=== PATIENT | male | born 1990 | race Caucasian/White ===

== ENCOUNTER 2016-12-16 17:54 | Emergency (ER) | payer OTHER ==
[2016-12-16] MEDS ORDERED: KETOROLAC 30 MG/ML VIAL (J1885) As Ordered ONE (19:36)
[2016-12-16] MEDS ORDERED: METHOCARBAMOL 500 MG TAB As Ordered ONE (19:36)
--- NOTE | 2016-12-16 19:59 | EDDOCDS ---
Nurse's Notes [facility] Name: Otoniel Alvarez Age: 26 yrs Sex: Male : 1990 Arrival Date: 12/16/2016 Time: 17:54 Bed PR Private MD: Moody Gooden MD Diagnosis: Low back pain Presentation: 12/16 17:59 Presenting complaint: Patient states: Twisted back muscle, reports of lower back pain rs3 radiates to left shoulder. Acute neurological deficits are not present. Mechanism of Injury: No Mechanism of Injury. Adult Sepsis Screening: The patient does not have new or worsening altered mentation. Patient's respiratory rate is less than 22. Systolic blood pressure is greater than 100. Patient has a qSOFA score of 0- Negative Sepsis Screen. Suicide/Homicide risk assessment- the patient denies having any suicidal and/or homicidal ideations and does not present with any other emotional, behavioral or mental health complaints. Status: Patient is not a financial service representative or dependent. Transition of care: patient was not received from another setting of care. 17:59 Acuity: EVELYN Level 4 rs3 17:59 Method Of Arrival: Walkin/Carried/Asstd rs3 Triage Assessment: 18:01 General: Appears in no apparent distress. Pain: Location: left scapular area, left rs3 subscapular area and lumbar area. HIV screening NA for this visit Offered previously. Musculoskeletal: Reports Pain is 6 out of 10 on a pain scale. Historical: - Allergies: PENICILLINS (Swelling); - Home Meds: 1. albuterol sulfate 90 mcg/actuation Inhl HFAA 2 puffs every 4 hours as needed 2. prazosin 1 mg Oral cap 1 cap nightly prn - PMHx: Asthma; GERD; - PSHx: Tonsillectomy; PRK Eye Surgery; - Social history: Smoking status: Patient states former smoker of tobacco. No barriers to communication noted, The patient speaks fluent Greenlandic. - Family history: Not pertinent. - : The pt / caregiver states he / she is not on anticoagulants. Home medication list is obtained from the patient. - Exposure Risk Screening:: None identified. Screenin:06 Screening information is obtained from the patient. Fall risk: No risks identified. cz Assistance ADL's: requires no assistance with activities of daily living. Abuse/DV Screen: The patient / caregiver reports he/she is: not in a situation that causes fear, pain or injury. Nutritional screening: No deficits noted. Advance Directives: Currently, there is no health care proxy. home support is adequate. Assessment: 19:06 General: alert male with back pain after reaching over his head for something. cz 19:58 General: Appears in no apparent distress. Pain: Location: lumbar area. Cardiovascular: rs3 Capillary refill < 3 seconds. Respiratory: Airway is patent Respiratory effort is even, unlabored. Derm: Skin is pink, warm & dry. Vital Signs: 17:56 BP 147 / 89; Pulse 85; Resp 18; Temp 98.6(O); Pulse Ox 98% on R/A; Weight 97.52 kg (R); elp Height 6 ft. 0 in. (182.88 cm) (R); Pain 8/10; 19:58 BP 122 / 68; Pulse 78; Resp 18; Temp 98(T); Pulse Ox 99% on R/A; Pain 0/10; rs3 17:56 Body Mass Index 29.16 (97.52 kg, 182.88 cm) [facility] Vitals: 17:56 Log In Time: December 16, 2016 at 17:55. [facility] ED Course: 17:55 Patient visited by Desiree Guerin PCA. elp 17:55 Patient moved to Waiting elp 17:56 Moody Gooden is Private Physician. elp 17:56 Patient visited by Desiree Guerin PCA. elp 17:56 Patient moved to Pre RCE elp 18:01 Triage Initiated rs3 19:05 Patient moved to Triage 2 cz 19:06 The patient / caregiver is instructed regarding the plan of care and ED course. cz 19:23 [facility] ck7 19:23 Jose Sin DO is Attending Physician. ck7 19:23 Patient visited by Gopi Medina RPA-C. ck7 19:35 Patient moved to PR1 / 25 rs3 19:37 [facility] Payment Agreement was scanned into [employer] and attached to record. kf3 19:39 Moody Gooden is Referral Physician. ck7 19:57 No IV's were initiated during this patient's visit. No procedures done that require rs3 assistance. Administered Medications: 19:43 Drug: ketorolac 60 mg [ketorolac 30 mg/mL (1 mL) injection solution (2 mL)] Route: IM; rs3 Site: right gluteus; 19:43 Drug: Methocarbamol 1 grams [methocarbamol 500 mg tablet (2 tabs)] Route: PO; rs3 Order Results: There are currently no results for this order. Outcome: 19:39 Discharge ordered by Provider. ck7 19:57 Discharge Assessment: patient administered narcotics - no. The following High Risk rs3 Discharge criteria are identified: None. Discharged to home with family. Condition: stable. Discharge instructions given to patient, Instructed on discharge instructions, follow up and referral plans. medication usage, Demonstrated understanding of instructions, medications, Pt was receptive of discharge instructions/ teaching. Prescriptions given X 2. No special radiology studies were completed. Property :Personal belongings accompany Pt. 19:59 Patient left the ED. rs3 Signatures: Sheldon Leyva RN RN cz Arpan Leahy, Reg Reg kf3 Angy Crowell RN RN rs3 Gopi Medina, RPA-C RPA-Cck7 Patchen, Desiree, LAN ADMINISTRATOR LAN ADMINISTRATOR elp MTDD
--- NOTE | 2016-12-16 19:59 | EDDOCDS ---
Physician Documentation [facility] Name: Otoniel Alvarez Age: 26 yrs Sex: Male : 1990 Arrival Date: 12/16/2016 Time: 17:54 Bed PR Private MD: Moody Gooden MD Disposition: 12/16/16 19:39 Discharged to Home/Self Care. Impression: Low back pain. - Condition is Stable. - Discharge Instructions: Back Pain, Adult. - Prescriptions for Robaxin 500 mg Oral Tablet - take 2 tablet by ORAL route every 6 hours As needed; 40 tablet. ketorolac 10 mg Oral Tablet - take 1 tablet by ORAL route every 6 hours As needed MDD- 40mg. Up to 5 days total use.; 20 tablet. - Medication Reconciliation, Work Release Form - 2 day, Local Pharmacy Hours form. - Follow up: Moody Gooden; When: 2 - 3 days; Reason: Recheck today's complaints, Continuance of care. - Problem is new. - Symptoms have improved. Historical: - Allergies: PENICILLINS (Swelling); - Home Meds: 1. albuterol sulfate 90 mcg/actuation Inhl HFAA 2 puffs every 4 hours as needed 2. prazosin 1 mg Oral cap 1 cap nightly prn - PMHx: Asthma; GERD; - PSHx: Tonsillectomy; PRK Eye Surgery; - Social history: Smoking status: Patient states former smoker of tobacco. No barriers to communication noted, The patient speaks fluent Sami. - Family history: Not pertinent. - : The pt / caregiver states he / she is not on anticoagulants. Home medication list is obtained from the patient. - Exposure Risk Screening:: None identified. Vital Signs: 12/16 17:56 BP 147 / 89; Pulse 85; Resp 18; Temp 98.6(O); Pulse Ox 98% on R/A; Weight 97.52 kg / elp 214.99 lbs (R); Height 6 ft. 0 in. (182.88 cm) (R); Pain 8/10; 19:58 BP 122 / 68; Pulse 78; Resp 18; Temp 98(T); Pulse Ox 99% on R/A; Pain 0/10; rs3 17:56 Body Mass Index 29.16 (97.52 kg, 182.88 cm) elp MDM: 19:29 Financial registration complete. kf3 19:33 ketorolac 60 mg IM once ordered. ck7 19:33 Methocarbamol 1 grams PO once ordered. ck7 19:37 [facility] Payment Agreement was scanned into [employer] and attached to record. kf3 Administered Medications: 19:43 Drug: ketorolac 60 mg [ketorolac 30 mg/mL (1 mL) injection solution (2 mL)] Route: IM; rs3 Site: right gluteus; 19:43 Drug: Methocarbamol 1 grams [methocarbamol 500 mg tablet (2 tabs)] Route: PO; rs3 Signatures: Sheldon Leyva RN RN cz Arpan Leahy, Reg Reg kf3 Angy Crowell RN RN rs3 Gopi Medina, RPA-C RPA-Cck7 The chart was reviewed and I authenticate all verbal orders and agree with the evaluation and treatment provided.Attachments: 19:37 [facility] Payment Agreement kf3 MTDD
--- NOTE | 2016-12-18 21:00 | EDDOCDS ---
Physician Documentation [facility] Name: Otoniel Alvarez Age: 26 yrs Sex: Male : 1990 Arrival Date: 12/16/2016 Time: 17:54 Bed PR Private MD: Moody Gooden MD Disposition: 12/16/16 19:39 Discharged to Home/Self Care. Impression: Low back pain. - Condition is Stable. - Discharge Instructions: Back Pain, Adult. - Prescriptions for Robaxin 500 mg Oral Tablet - take 2 tablet by ORAL route every 6 hours As needed; 40 tablet. ketorolac 10 mg Oral Tablet - take 1 tablet by ORAL route every 6 hours As needed MDD- 40mg. Up to 5 days total use.; 20 tablet. - Medication Reconciliation, Work Release Form - 2 day, Local Pharmacy Hours form. - Follow up: Moody Gooden; When: 2 - 3 days; Reason: Recheck today's complaints, Continuance of care. - Problem is new. - Symptoms have improved. Historical: - Allergies: PENICILLINS (Swelling); - Home Meds: 1. albuterol sulfate 90 mcg/actuation Inhl HFAA 2 puffs every 4 hours as needed 2. prazosin 1 mg Oral cap 1 cap nightly prn - PMHx: Asthma; GERD; - PSHx: Tonsillectomy; PRK Eye Surgery; - Social history: Smoking status: Patient states former smoker of tobacco. No barriers to communication noted, The patient speaks fluent Arabic. - Family history: Not pertinent. - : The pt / caregiver states he / she is not on anticoagulants. Home medication list is obtained from the patient. - Exposure Risk Screening:: None identified. Vital Signs: 12/16 17:56 BP 147 / 89; Pulse 85; Resp 18; Temp 98.6(O); Pulse Ox 98% on R/A; Weight 97.52 kg / elp 214.99 lbs (R); Height 6 ft. 0 in. (182.88 cm) (R); Pain 8/10; 19:58 BP 122 / 68; Pulse 78; Resp 18; Temp 98(T); Pulse Ox 99% on R/A; Pain 0/10; rs3 17:56 Body Mass Index 29.16 (97.52 kg, 182.88 cm) elp MDM: 19:29 Financial registration complete. kf3 19:33 ketorolac 60 mg IM once ordered. ck7 19:33 Methocarbamol 1 grams PO once ordered. ck7 :37 [facility] Payment Agreement was scanned into [employer] and attached to record. kf3 21:04 T-Sheet-- Draft Copy was scanned into [employer] and attached to record. klr Administered Medications: 19:43 Drug: ketorolac 60 mg [ketorolac 30 mg/mL (1 mL) injection solution (2 mL)] Route: IM; rs3 Site: right gluteus; 19:43 Drug: Methocarbamol 1 grams [methocarbamol 500 mg tablet (2 tabs)] Route: PO; rs3 Signatures: Sheldon Leyva RN RN cz Arpan Leahy, Reg Reg kf3 Angy Crowell RN RN rs3 Gopi Medina, RPA-C RPA-Cck7 Nika Gonzalez The chart was reviewed and I authenticate all verbal orders and agree with the evaluation and treatment provided.Attachments: :37 [facility] Payment Agreement kf3 21:04 T-Sheet-- Draft Copy klr Chart Complete MTDD
--- NOTE | 2016-12-18 21:00 | EDDOCDS ---
Physician Documentation [facility] Name: Otoniel Alvarez Age: 26 yrs Sex: Male : 1990 Arrival Date: 12/16/2016 Time: 17:54 Bed PR Private MD: Moody Gooden MD Disposition: 12/16/16 19:39 Discharged to Home/Self Care. Impression: Low back pain. - Condition is Stable. - Discharge Instructions: Back Pain, Adult. - Prescriptions for Robaxin 500 mg Oral Tablet - take 2 tablet by ORAL route every 6 hours As needed; 40 tablet. ketorolac 10 mg Oral Tablet - take 1 tablet by ORAL route every 6 hours As needed MDD- 40mg. Up to 5 days total use.; 20 tablet. - Medication Reconciliation, Work Release Form - 2 day, Local Pharmacy Hours form. - Follow up: Moody Gooden; When: 2 - 3 days; Reason: Recheck today's complaints, Continuance of care. - Problem is new. - Symptoms have improved. Historical: - Allergies: PENICILLINS (Swelling); - Home Meds: 1. albuterol sulfate 90 mcg/actuation Inhl HFAA 2 puffs every 4 hours as needed 2. prazosin 1 mg Oral cap 1 cap nightly prn - PMHx: Asthma; GERD; - PSHx: Tonsillectomy; PRK Eye Surgery; - Social history: Smoking status: Patient states former smoker of tobacco. No barriers to communication noted, The patient speaks fluent Lao. - Family history: Not pertinent. - : The pt / caregiver states he / she is not on anticoagulants. Home medication list is obtained from the patient. - Exposure Risk Screening:: None identified. Vital Signs: 12/16 17:56 BP 147 / 89; Pulse 85; Resp 18; Temp 98.6(O); Pulse Ox 98% on R/A; Weight 97.52 kg / elp 214.99 lbs (R); Height 6 ft. 0 in. (182.88 cm) (R); Pain 8/10; 19:58 BP 122 / 68; Pulse 78; Resp 18; Temp 98(T); Pulse Ox 99% on R/A; Pain 0/10; rs3 17:56 Body Mass Index 29.16 (97.52 kg, 182.88 cm) elp MDM: 19:29 Financial registration complete. kf3 19:33 ketorolac 60 mg IM once ordered. ck7 19:33 Methocarbamol 1 grams PO once ordered. ck7 :37 [facility] Payment Agreement was scanned into [employer] and attached to record. kf3 21:04 T-Sheet-- Draft Copy was scanned into [employer] and attached to record. klr Administered Medications: 19:43 Drug: ketorolac 60 mg [ketorolac 30 mg/mL (1 mL) injection solution (2 mL)] Route: IM; rs3 Site: right gluteus; 19:43 Drug: Methocarbamol 1 grams [methocarbamol 500 mg tablet (2 tabs)] Route: PO; rs3 Signatures: Sheldon Leyva RN RN cz Arpan Leahy, Reg Reg kf3 Angy Crowell RN RN rs3 Gopi Medina, RPA-C RPA-Cck7 Nika Gonzalez The chart was reviewed and I authenticate all verbal orders and agree with the evaluation and treatment provided.Attachments: :37 [facility] Payment Agreement kf3 21:04 T-Sheet-- Draft Copy klr Chart Complete MTDD
--- NOTE | 2016-12-18 21:00 | EDDOCDS ---
Nurse's Notes [facility] Name: Otoniel Alvarez Age: 26 yrs Sex: Male : 1990 Arrival Date: 12/16/2016 Time: 17:54 Bed PR Private MD: Moody Gooden MD Diagnosis: Low back pain Presentation: 12/16 17:59 Presenting complaint: Patient states: Twisted back muscle, reports of lower back pain rs3 radiates to left shoulder. Acute neurological deficits are not present. Mechanism of Injury: No Mechanism of Injury. Adult Sepsis Screening: The patient does not have new or worsening altered mentation. Patient's respiratory rate is less than 22. Systolic blood pressure is greater than 100. Patient has a qSOFA score of 0- Negative Sepsis Screen. Suicide/Homicide risk assessment- the patient denies having any suicidal and/or homicidal ideations and does not present with any other emotional, behavioral or mental health complaints. Status: Patient is not a manager client service or dependent. Transition of care: patient was not received from another setting of care. 17:59 Acuity: EVELYN Level 4 rs3 17:59 Method Of Arrival: Walkin/Carried/Asstd rs3 Triage Assessment: 18:01 General: Appears in no apparent distress. Pain: Location: left scapular area, left rs3 subscapular area and lumbar area. HIV screening NA for this visit Offered previously. Musculoskeletal: Reports Pain is 6 out of 10 on a pain scale. Historical: - Allergies: PENICILLINS (Swelling); - Home Meds: 1. albuterol sulfate 90 mcg/actuation Inhl HFAA 2 puffs every 4 hours as needed 2. prazosin 1 mg Oral cap 1 cap nightly prn - PMHx: Asthma; GERD; - PSHx: Tonsillectomy; PRK Eye Surgery; - Social history: Smoking status: Patient states former smoker of tobacco. No barriers to communication noted, The patient speaks fluent Greenlandic. - Family history: Not pertinent. - : The pt / caregiver states he / she is not on anticoagulants. Home medication list is obtained from the patient. - Exposure Risk Screening:: None identified. Screenin:06 Screening information is obtained from the patient. Fall risk: No risks identified. cz Assistance ADL's: requires no assistance with activities of daily living. Abuse/DV Screen: The patient / caregiver reports he/she is: not in a situation that causes fear, pain or injury. Nutritional screening: No deficits noted. Advance Directives: Currently, there is no health care proxy. home support is adequate. Assessment: 19:06 General: alert male with back pain after reaching over his head for something. cz 19:58 General: Appears in no apparent distress. Pain: Location: lumbar area. Cardiovascular: rs3 Capillary refill < 3 seconds. Respiratory: Airway is patent Respiratory effort is even, unlabored. Derm: Skin is pink, warm & dry. Vital Signs: 17:56 BP 147 / 89; Pulse 85; Resp 18; Temp 98.6(O); Pulse Ox 98% on R/A; Weight 97.52 kg (R); elp Height 6 ft. 0 in. (182.88 cm) (R); Pain 8/10; 19:58 BP 122 / 68; Pulse 78; Resp 18; Temp 98(T); Pulse Ox 99% on R/A; Pain 0/10; rs3 17:56 Body Mass Index 29.16 (97.52 kg, 182.88 cm) [facility] Vitals: 17:56 Log In Time: December 16, 2016 at 17:55. [facility] ED Course: 17:55 Patient visited by Desiree Guerin PCA. elp 17:55 Patient moved to Waiting elp 17:56 Moody Gooden is Private Physician. elp 17:56 Patient visited by Desiree Guerin PCA. elp 17:56 Patient moved to Pre RCE elp 18:01 Triage Initiated rs3 19:05 Patient moved to Triage 2 cz 19:06 The patient / caregiver is instructed regarding the plan of care and ED course. cz 19:23 [facility]C [facility] ck7 19:23 Jose Sin DO is Attending Physician. ck7 19:23 Patient visited by Gopi Medina RPA-C. ck7 19:35 Patient moved to PR1 / 25 rs3 19:37 [facility] Payment Agreement was scanned into [employer] and attached to record. kf3 19:39 Moody Gooden is Referral Physician. ck7 19:57 No IV's were initiated during this patient's visit. No procedures done that require rs3 assistance. 21:04 T-Sheet-- Draft Copy was scanned into [employer] and attached to record. klr Administered Medications: 19:43 Drug: ketorolac 60 mg [ketorolac 30 mg/mL (1 mL) injection solution (2 mL)] Route: IM; rs3 Site: right gluteus; 19:43 Drug: Methocarbamol 1 grams [methocarbamol 500 mg tablet (2 tabs)] Route: PO; rs3 Order Results: There are currently no results for this order. Outcome: 19:39 Discharge ordered by Provider. ck7 19:57 Discharge Assessment: patient administered narcotics - no. The following High Risk rs3 Discharge criteria are identified: None. Discharged to home with family. Condition: stable. Discharge instructions given to patient, Instructed on discharge instructions, follow up and referral plans. medication usage, Demonstrated understanding of instructions, medications, Pt was receptive of discharge instructions/ teaching. Prescriptions given X 2. No special radiology studies were completed. Property :Personal belongings accompany Pt. 19:59 Patient left the ED. rs3 Signatures: Sheldon Leyva, RN RN cz Arpan Leahy, Reg Reg kf3 Angy Crowell RN RN rs3 Gopi Medina, RPA-C RPA-Cck7 Desiree Guerin, NEEL FINAL APPLICATION REVIEWER Nika Richard Chart Complete MTDD
== END 2016-12-16 19:59 | disposition home or self-care (01) ==
LOC: M ED 17:54
DX: M54.5 Low back pain (principal); J45.909 Unspecified asthma, uncomplicated; K21.9 Gastro-esophageal reflux disease without esophagitis; Z87.891 Personal history of nicotine dependence; Z79.51 Long term (current) use of inhaled steroids; Z79.899 Other long term (current) drug therapy; Z88.0 Allergy status to penicillin
CPT/HCPCS: 96372; 99283; J1885

== ENCOUNTER 2017-01-17 13:50 | Emergency (ER) | payer OTHER ==
[2017-01-17] MEDS ORDERED: ONDANSETRON 4 MG ORAL DISINTEGRATING TAB (S0181) As Ordered ONE (14:34)
[2017-01-17] MEDS ORDERED: ACETAMINOPHEN 325 MG TAB As Ordered ONE (14:34)
--- NOTE | 2017-01-17 14:46 | EDDOCDS ---
Nurse's Notes [facility] Name: Otoniel Alvarez Age: 26 yrs Sex: Male : 1990 Arrival Date: 01/17/2017 Time: 13:50 Bed TR6 Private MD: Diagnosis: Other specified noninfective gastroenteritis and colitis Presentation: 01/17 13:55 Presenting complaint: Patient states: cold, cough, chills, vomiting for 2 days. no rs3 relief with cold, flu tylenol. Adult Sepsis Screening: The patient does not have new or worsening altered mentation. Patient's respiratory rate is less than 22. Systolic blood pressure is greater than 100. Patient has a qSOFA score of 0- Negative Sepsis Screen. Suicide/Homicide risk assessment- the patient denies having any suicidal and/or homicidal ideations and does not present with any other emotional, behavioral or mental health complaints. Status: . Transition of care: patient was not received from another setting of care. 13:55 Acuity: EVELYN Level 4 rs3 13:55 Method Of Arrival: Walkin/Carried/Asstd rs3 Triage Assessment: 13:57 General: Appears in no apparent distress. Pain: Denies pain. Pt Declines HIV testing. rs3 Historical: - Allergies: PENICILLINS (Swelling); - Home Meds: 1. albuterol sulfate 90 mcg/actuation Inhl HFAA 2 puffs every 4 hours as needed 2. prazosin 1 mg Oral cap 1 cap nightly prn 3. Zantac 150 mg Oral tab 1 tab 2 times per day as needed - PMHx: Asthma; GERD; - PSHx: Tonsillectomy; PRK Eye Surgery; - Social history: Smoking status: Patient states former smoker of tobacco. No barriers to communication noted, The patient speaks fluent Somali. - Family history: Not pertinent. - : The pt / caregiver states he / she is not on anticoagulants. Home medication list is obtained from the patient. - Exposure Risk Screening:: None identified. Screenin:37 Screening information is obtained from the patient. Fall risk: No risks identified. ck1 Assistance ADL's: requires no assistance with activities of daily living. Abuse/DV Screen: The patient / caregiver reports he/she is: not in a situation that causes fear, pain or injury. Nutritional screening: No deficits noted. Advance Directives: Currently, there is no health care proxy. home support is adequate. Assessment: 14:38 General: Appears in no apparent distress, comfortable, Behavior is appropriate for age, ck1 cooperative. Pain: Location: generalized Pain currently is 6 out of 10 on a pain scale. Neurological: Level of Consciousness is awake, alert, obeys commands, Oriented to person, place, time. Respiratory: Respiratory effort is unlabored, Respiratory pattern is regular, symmetrical. GI: Reports nausea. Derm: Skin is intact, is healthy with good turgor, Skin is pink, warm & dry. Vital Signs: 13:52 BP 133 / 82; Pulse 100; Resp 16; Temp 100.2(O); Pulse Ox 100% on R/A; Weight 104.33 kg lr2 (R); Height 6 ft. 0 in. (182.88 cm) (R); Pain 6/10; 13:52 Body Mass Index 31.19 (104.33 kg, 182.88 cm) lr2 Vitals: 13:52 Log In Time: January 17, 2017 at 13:50. lr2 ED Course: 13:51 Patient visited by Annalise Lim. lr2 13:51 Patient moved to Waiting lr2 13:52 Patient moved to Pre RCE lr2 13:56 Triage Initiated rs3 14:06 Patient moved to Triage 3 jb5 14:14 [facility] Keenan FNP is [facility]. ke 14:14 Patient visited by John Keenan FNP. ke 14:14 Patient visited by John Keenan FNP. ke 14:37 The patient / caregiver is instructed regarding the plan of care and ED course. ck1 14:37 No IV's were initiated during this patient's visit. No procedures done that require ck1 assistance. 14:38 [facility] is Referral Physician. ke 14:44 Patient moved to TR6 jb5 Administered Medications: 14:29 CANCELLED (Other Intervention Used): Acetaminophen Tablet 975 mg PO once ke 14:37 Drug: Ondansetron ODT 4 mg [ondansetron 4 mg disintegrating tablet (1 tabs)] Route: PO; ck1 14:37 Drug: Acetaminophen 975 mg [acetaminophen 325 mg tablet (3 tabs)] Route: PO; ck1 Order Results: There are currently no results for this order. Outcome: 14:37 Discharge Assessment: Patient awake, alert and oriented x 3. No cognitive and/or ck1 functional deficits noted. Patient verbalized understanding of disposition instructions. patient administered narcotics - no. The following High Risk Discharge criteria are identified: None. Discharged to home ambulatory. Condition: stable. Discharge instructions given to patient, Instructed on discharge instructions, follow up and referral plans. medication usage, Demonstrated understanding of instructions, medications, Pt was receptive of discharge instructions/ teaching. No special radiology studies were completed. Property :Personal belongings accompany Pt. 14:38 Discharge ordered by Provider. ke 14:45 Patient left the ED. jo3 Signatures: John Keenan, INTERVENTIONIST INTERVENTIONIST Janelle WestRN RN ck1 Meghan Young, SEXUAL ABUSE COUNSELLOR SEXUAL ABUSE COUNSELLOR jb5 Mindy Mcghee RN RN jo3 Angy CrowellRN RN rs3 Annalise Lim2 MTDSouth
--- NOTE | 2017-01-17 14:46 | EDDOCDS ---
Physician Documentation [facility] Name: Otoniel Alvarez Age: 26 yrs Sex: Male : 1990 Arrival Date: 01/17/2017 Time: 13:50 Bed TR6 Private MD: Disposition: 01/17/17 14:38 Discharged to Home/Self Care. Impression: Other specified noninfective gastroenteritis and colitis. - Condition is Stable. - Discharge Instructions: Viral Gastroenteritis. - Prescriptions for Zofran 4 mg Oral Tablet - take 1 tablet by ORAL route 4 times per day As needed; 10 tablet. - Medication Reconciliation, Local Pharmacy Hours, Work Release Form - 2 day form. - Follow up: [facility]; When: 4 - 5 days; Reason: Recheck today's complaints, Continuance of care. - Problem is an ongoing problem. - Symptoms are unchanged. Historical: - Allergies: PENICILLINS (Swelling); - Home Meds: 1. albuterol sulfate 90 mcg/actuation Inhl HFAA 2 puffs every 4 hours as needed 2. prazosin 1 mg Oral cap 1 cap nightly prn 3. Zantac 150 mg Oral tab 1 tab 2 times per day as needed - PMHx: Asthma; GERD; - PSHx: Tonsillectomy; PRK Eye Surgery; - Social history: Smoking status: Patient states former smoker of tobacco. No barriers to communication noted, The patient speaks fluent Malay. - Family history: Not pertinent. - : The pt / caregiver states he / she is not on anticoagulants. Home medication list is obtained from the patient. - Exposure Risk Screening:: None identified. Vital Signs: 01/17 13:52 BP 133 / 82; Pulse 100; Resp 16; Temp 100.2(O); Pulse Ox 100% on R/A; Weight 104.33 kg lr2 / 230.01 lbs (R); Height 6 ft. 0 in. (182.88 cm) (R); Pain 6/10; 13:52 Body Mass Index 31.19 (104.33 kg, 182.88 cm) lr2 MDM: 14:29 Ondansetron ODT Oral Disintegrating Tablet 4 mg PO once ordered. ke 14:29 Acetaminophen Tablet 975 mg PO once ordered. ke Administered Medications: 14:29 CANCELLED (Other Intervention Used): Acetaminophen Tablet 975 mg PO once ke 14:37 Drug: Ondansetron ODT 4 mg [ondansetron 4 mg disintegrating tablet (1 tabs)] Route: PO; ck1 14:37 Drug: Acetaminophen 975 mg [acetaminophen 325 mg tablet (3 tabs)] Route: PO; ck1 Signatures: John Keenan, FRUIT HARVESTER MACHINE OPERATOR FRUIT HARVESTER MACHINE OPERATOR Janelle WestRN RN ck1 Mindy McgheeRN RN jo3 Angy CrowellRN RN rs3 The chart was reviewed and I authenticate all verbal orders and agree with the evaluation and treatment provided.Corrections: (The following items were deleted from the chart) 14:29 14:29 Acetaminophen Tablet 975 mg PO once ordered. ron ke MTDD
[2017-01-17] MEDS ORDERED: METAL LOCK LOOP XX ONE (16:47)
--- NOTE | 2017-01-19 15:46 | EDDOCDS ---
Physician Documentation [facility] Name: Otoniel Alvarez Age: 26 yrs Sex: Male : 1990 Arrival Date: 01/17/2017 Time: 13:50 Bed TR6 Private MD: Disposition: 01/17/17 14:38 Discharged to Home/Self Care. Impression: Other specified noninfective gastroenteritis and colitis. - Condition is Stable. - Discharge Instructions: Viral Gastroenteritis. - Prescriptions for Zofran 4 mg Oral Tablet - take 1 tablet by ORAL route 4 times per day As needed; 10 tablet. - Medication Reconciliation, Local Pharmacy Hours, Work Release Form - 2 day form. - Follow up: [facility]; When: 4 - 5 days; Reason: Recheck today's complaints, Continuance of care. - Problem is an ongoing problem. - Symptoms are unchanged. Historical: - Allergies: PENICILLINS (Swelling); - Home Meds: 1. albuterol sulfate 90 mcg/actuation Inhl HFAA 2 puffs every 4 hours as needed 2. prazosin 1 mg Oral cap 1 cap nightly prn 3. Zantac 150 mg Oral tab 1 tab 2 times per day as needed - PMHx: Asthma; GERD; - PSHx: Tonsillectomy; PRK Eye Surgery; - Social history: Smoking status: Patient states former smoker of tobacco. No barriers to communication noted, The patient speaks fluent Chinese. - Family history: Not pertinent. - : The pt / caregiver states he / she is not on anticoagulants. Home medication list is obtained from the patient. - Exposure Risk Screening:: None identified. Vital Signs: 01/17 13:52 BP 133 / 82; Pulse 100; Resp 16; Temp 100.2(O); Pulse Ox 100% on R/A; Weight 104.33 kg lr2 / 230.01 lbs (R); Height 6 ft. 0 in. (182.88 cm) (R); Pain 6/10; 13:52 Body Mass Index 31.19 (104.33 kg, 182.88 cm) lr2 MDM: 14:29 Ondansetron ODT Oral Disintegrating Tablet 4 mg PO once ordered. ke 14:29 Acetaminophen Tablet 975 mg PO once ordered. ke 14:49 [facility] Payment Agreement was scanned into [employer] and attached to record. jp5 14:49 Financial registration complete. jp5 01/18 10:18 T-Sheet-- Draft Copy was scanned into [employer] and attached to record. gb Administered Medications: 01/17 14:29 CANCELLED (Other Intervention Used): Acetaminophen Tablet 975 mg PO once ke 14:37 Drug: Ondansetron ODT 4 mg [ondansetron 4 mg disintegrating tablet (1 tabs)] Route: PO; ck1 14:37 Drug: Acetaminophen 975 mg [acetaminophen 325 mg tablet (3 tabs)] Route: PO; ck1 Signatures: Bina Escalante, Reg Reg gb John Keenan, GAME PROGRAMER GAME PROGRAMER Janelle WestRN RN ck1 Mindy McgheeRN RN chantelle3 Angy Crowell,RN RN rs3 Pinky Julien jp5 The chart was reviewed and I authenticate all verbal orders and agree with the evaluation and treatment provided.Corrections: (The following items were deleted from the chart) : 14:29 Acetaminophen Tablet 975 mg PO once ordered. ron velasquez Attachments: 14:49 [facility] Payment Agreement jp5 01/18 10:18 T-Sheet-- Draft Copy gb Chart Complete [facility]
--- NOTE | 2017-01-19 15:46 | EDDOCDS ---
Nurse's Notes [facility] Name: Otoniel Alvarez Age: 26 yrs Sex: Male : 1990 Arrival Date: 01/17/2017 Time: 13:50 Bed TR6 Private MD: Diagnosis: Other specified noninfective gastroenteritis and colitis Presentation: 01/17 13:55 Presenting complaint: Patient states: cold, cough, chills, vomiting for 2 days. no rs3 relief with cold, flu tylenol. Adult Sepsis Screening: The patient does not have new or worsening altered mentation. Patient's respiratory rate is less than 22. Systolic blood pressure is greater than 100. Patient has a qSOFA score of 0- Negative Sepsis Screen. Suicide/Homicide risk assessment- the patient denies having any suicidal and/or homicidal ideations and does not present with any other emotional, behavioral or mental health complaints. Status: . Transition of care: patient was not received from another setting of care. 13:55 Acuity: EVELYN Level 4 rs3 13:55 Method Of Arrival: Walkin/Carried/Asstd rs3 Triage Assessment: 13:57 General: Appears in no apparent distress. Pain: Denies pain. Pt Declines HIV testing. rs3 Historical: - Allergies: PENICILLINS (Swelling); - Home Meds: 1. albuterol sulfate 90 mcg/actuation Inhl HFAA 2 puffs every 4 hours as needed 2. prazosin 1 mg Oral cap 1 cap nightly prn 3. Zantac 150 mg Oral tab 1 tab 2 times per day as needed - PMHx: Asthma; GERD; - PSHx: Tonsillectomy; PRK Eye Surgery; - Social history: Smoking status: Patient states former smoker of tobacco. No barriers to communication noted, The patient speaks fluent Sami. - Family history: Not pertinent. - : The pt / caregiver states he / she is not on anticoagulants. Home medication list is obtained from the patient. - Exposure Risk Screening:: None identified. Screenin:37 Screening information is obtained from the patient. Fall risk: No risks identified. ck1 Assistance ADL's: requires no assistance with activities of daily living. Abuse/DV Screen: The patient / caregiver reports he/she is: not in a situation that causes fear, pain or injury. Nutritional screening: No deficits noted. Advance Directives: Currently, there is no health care proxy. home support is adequate. Assessment: 14:38 General: Appears in no apparent distress, comfortable, Behavior is appropriate for age, ck1 cooperative. Pain: Location: generalized Pain currently is 6 out of 10 on a pain scale. Neurological: Level of Consciousness is awake, alert, obeys commands, Oriented to person, place, time. Respiratory: Respiratory effort is unlabored, Respiratory pattern is regular, symmetrical. GI: Reports nausea. Derm: Skin is intact, is healthy with good turgor, Skin is pink, warm & dry. Vital Signs: 13:52 BP 133 / 82; Pulse 100; Resp 16; Temp 100.2(O); Pulse Ox 100% on R/A; Weight 104.33 kg lr2 (R); Height 6 ft. 0 in. (182.88 cm) (R); Pain 6/10; 13:52 Body Mass Index 31.19 (104.33 kg, 182.88 cm) lr2 Vitals: 13:52 Log In Time: January 17, 2017 at 13:50. lr2 ED Course: 13:51 Patient visited by Annalise Lim. lr2 13:51 Patient moved to Waiting lr2 13:52 Patient moved to Pre RCE lr2 13:56 Triage Initiated rs3 14:06 Patient moved to Triage 3 jb5 14:14 [facility] ke 14:14 Patient visited by John Keenan FNP. ke 14:14 Patient visited by John Keenan FNP. ke 14:37 The patient / caregiver is instructed regarding the plan of care and ED course. ck1 14:37 No IV's were initiated during this patient's visit. No procedures done that require ck1 assistance. 14:38 [facility] is Referral Physician. ke 14:44 Patient moved to TR6 jb5 14:49 [facility] Payment Agreement was scanned into [employer] and attached to record. jp5 01/18 10:18 T-Sheet-- Draft Copy was scanned into [employer] and attached to record. gb Administered Medications: 01/17 14:29 CANCELLED (Other Intervention Used): Acetaminophen Tablet 975 mg PO once ke 14:37 Drug: Ondansetron ODT 4 mg [ondansetron 4 mg disintegrating tablet (1 tabs)] Route: PO; ck1 14:37 Drug: Acetaminophen 975 mg [acetaminophen 325 mg tablet (3 tabs)] Route: PO; ck1 Order Results: There are currently no results for this order. Outcome: 14:37 Discharge Assessment: Patient awake, alert and oriented x 3. No cognitive and/or ck1 functional deficits noted. Patient verbalized understanding of disposition instructions. patient administered narcotics - no. The following High Risk Discharge criteria are identified: None. Discharged to home ambulatory. Condition: stable. Discharge instructions given to patient, Instructed on discharge instructions, follow up and referral plans. medication usage, Demonstrated understanding of instructions, medications, Pt was receptive of discharge instructions/ teaching. No special radiology studies were completed. Property :Personal belongings accompany Pt. 14:38 Discharge ordered by Provider. ron 14:45 Patient left the ED. jo3 Signatures: Bina Escalante, Reg Reg gb John Keenan, WOMEN DESIGNER WOMEN DESIGNER Janelle WestRN RN ck1 Meghan Young, TELEVISION REPAIRMAN TELEVISION REPAIRMAN jb5 Mindy Mcghee RN RN jo3 Angy CrowellRN RN rs3 Pinky Julien jp5 Annalise Lim2 Chart Complete [facility]
--- NOTE | 2017-01-19 15:46 | EDDOCDS ---
Physician Documentation [facility] Name: Otoniel Alvarez Age: 26 yrs Sex: Male : 1990 Arrival Date: 01/17/2017 Time: 13:50 Bed TR6 Private MD: Disposition: 01/17/17 14:38 Discharged to Home/Self Care. Impression: Other specified noninfective gastroenteritis and colitis. - Condition is Stable. - Discharge Instructions: Viral Gastroenteritis. - Prescriptions for Zofran 4 mg Oral Tablet - take 1 tablet by ORAL route 4 times per day As needed; 10 tablet. - Medication Reconciliation, Local Pharmacy Hours, Work Release Form - 2 day form. - Follow up: [facility]; When: 4 - 5 days; Reason: Recheck today's complaints, Continuance of care. - Problem is an ongoing problem. - Symptoms are unchanged. Historical: - Allergies: PENICILLINS (Swelling); - Home Meds: 1. albuterol sulfate 90 mcg/actuation Inhl HFAA 2 puffs every 4 hours as needed 2. prazosin 1 mg Oral cap 1 cap nightly prn 3. Zantac 150 mg Oral tab 1 tab 2 times per day as needed - PMHx: Asthma; GERD; - PSHx: Tonsillectomy; PRK Eye Surgery; - Social history: Smoking status: Patient states former smoker of tobacco. No barriers to communication noted, The patient speaks fluent Polish. - Family history: Not pertinent. - : The pt / caregiver states he / she is not on anticoagulants. Home medication list is obtained from the patient. - Exposure Risk Screening:: None identified. Vital Signs: 01/17 13:52 BP 133 / 82; Pulse 100; Resp 16; Temp 100.2(O); Pulse Ox 100% on R/A; Weight 104.33 kg lr2 / 230.01 lbs (R); Height 6 ft. 0 in. (182.88 cm) (R); Pain 6/10; 13:52 Body Mass Index 31.19 (104.33 kg, 182.88 cm) lr2 MDM: 14:29 Ondansetron ODT Oral Disintegrating Tablet 4 mg PO once ordered. ke 14:29 Acetaminophen Tablet 975 mg PO once ordered. ke 14:49 [facility] Payment Agreement was scanned into [employer] and attached to record. jp5 14:49 Financial registration complete. jp5 01/18 10:18 T-Sheet-- Draft Copy was scanned into [employer] and attached to record. gb Administered Medications: 01/17 14:29 CANCELLED (Other Intervention Used): Acetaminophen Tablet 975 mg PO once ke 14:37 Drug: Ondansetron ODT 4 mg [ondansetron 4 mg disintegrating tablet (1 tabs)] Route: PO; ck1 14:37 Drug: Acetaminophen 975 mg [acetaminophen 325 mg tablet (3 tabs)] Route: PO; ck1 Signatures: Bina Escalante, Reg Reg gb John Keenan, RIGHT OF WAY CUTTER RIGHT OF WAY CUTTER Janelle WestRN RN ck1 Mindy McgheeRN RN chantelle3 Angy Crowell,RN RN rs3 Pinky Julien jp5 The chart was reviewed and I authenticate all verbal orders and agree with the evaluation and treatment provided.Corrections: (The following items were deleted from the chart) : 14:29 Acetaminophen Tablet 975 mg PO once ordered. ron velasquez Attachments: 14:49 [facility] Payment Agreement jp5 01/18 10:18 T-Sheet-- Draft Copy gb Chart [facility]
== END 2017-01-17 14:45 | disposition home or self-care (01) ==
LOC: M ED 13:50
DX: K52.9 Noninfective gastroenteritis and colitis, unspecified (principal); J45.909 Unspecified asthma, uncomplicated; K21.9 Gastro-esophageal reflux disease without esophagitis; Z87.891 Personal history of nicotine dependence; Z79.899 Other long term (current) drug therapy; Z88.0 Allergy status to penicillin

== ENCOUNTER → 2017-08-14 | Outpatient (CLI) | payer OTHER ==
[~2017-08-14] MED LIST: CYCL10TA PO; VIAG100T PO
--- NOTE | 2017-08-14 11:32 | REP ---
Clinical: Abdominal pain. Technique: Two supine views of the abdomen and pelvis. Findings: Mild to moderate fecal stasis cannot be excluded. No evidence for bowel obstruction. No organomegaly. No abnormal calcifications. Skeletal structures are intact. Impression: Mild to moderate fecal stasis. Signed by Gunner Alberto MD 08/14/2017 11:23 A
[2017-08-14 19:48] LABS: ALBUMIN 3.9 GM/DL (3.2-5.2); ALBUMIN/GLOBULIN RATIO 1.26 (1.00-1.93); ALKALINE PHOSPHATASE 85 U/L (45-117); ALT/SGPT 34 U/L (12-78); AMYLASE 60 U/L (25-115); ANION GAP 6 MEQ/L (8-16); AST/SGOT 18 U/L (15-37); BILIRUBIN,TOTAL 0.2 MG/DL (0.2-1.0); BLOOD UREA NITROGEN 15 MG/DL (7-18); CARBON DIOXIDE LEVEL 32 MEQ/L (21-32); CHLORIDE LEVEL 108 MEQ/L (98-107); CREATININE FOR GFR 0.96 MG/DL (0.70-1.30); GLOMERULAR FILTRATION RATE > 60.0 (>60); GLUCOSE, FASTING 83 MG/DL (70-105); POTASSIUM SERUM 4.5 MEQ/L (3.5-5.1); SODIUM LEVEL 146 MEQ/L (136-145)
[2017-08-14 20:36] LABS: MEAN CORPUSCULAR HEMOGLOBIN 28.9 pg (27.0-33.0); MEAN CORPUSCULAR HGB CONC 32.7 g/dl (32.0-36.5); MEAN CORPUSCULAR VOLUME 88.6 fl (80.0-96.0); RED CELL DISTRIBUTION WIDTH 13.3 % (11.5-14.5); WHITE BLOOD COUNT 8.6 K/mm3 (4.0-10.0)
[2017-08-14 21:40] LABS: EOSINOPHILS 1 % (0-5)
== END ==
LOC: M WUC 11:01
PROVIDERS: ATTEND Physician Assistant
DX: R10.33 Periumbilical pain (principal)

== ENCOUNTER 2017-10-14 16:54 | Inpatient (IN) | payer OTHER ==
[~2017-10-14] VITALS: Ht 182.9 cm; Wt 90.0 kg
[2017-10-14 18:10] LABS: MEAN CORPUSCULAR HEMOGLOBIN 28.4 pg (27.0-33.0); MEAN CORPUSCULAR HGB CONC 33.3 g/dl (32.0-36.5); MEAN CORPUSCULAR VOLUME 85.4 fl (80.0-96.0); PLATELET COUNT, AUTOMATED 281 10^3/uL (150-450); RED CELL DISTRIBUTION WIDTH 12.9 % (11.5-14.5); WHITE BLOOD COUNT 13.6 10^3/uL (4.0-10.0)
[2017-10-14 18:46] LABS: ALKALINE PHOSPHATASE 84 U/L (45-117); ALT/SGPT 20 U/L (12-78); ANION GAP 7 MEQ/L (8-16); AST/SGOT 11 U/L (7-37); BILIRUBIN,TOTAL 0.8 MG/DL (0.2-1.0); BLOOD UREA NITROGEN 18 MG/DL (7-18); CARBON DIOXIDE LEVEL 26 MEQ/L (21-32); CHLORIDE LEVEL 108 MEQ/L (98-107); CREATININE FOR GFR 0.85 MG/DL (0.70-1.30); GLOMERULAR FILTRATION RATE > 60.0 (>60); GLUCOSE, FASTING 85 MG/DL (70-105); POTASSIUM SERUM 3.6 MEQ/L (3.5-5.1); SODIUM LEVEL 141 MEQ/L (136-145)
[2017-10-14 18:47] LABS: ALBUMIN 3.9 GM/DL (3.2-5.2); ALBUMIN/GLOBULIN RATIO 1.34 (1.00-1.93); BILIRUBIN,DIRECT 0.2 MG/DL (0.0-0.2); TOTAL PROTEIN 6.8 GM/DL (6.4-8.2)
[2017-10-14] MEDS ORDERED: VIAG100T PO (19:01)
[2017-10-14] MEDS ORDERED: CYCL10TA PO (19:01)
[2017-10-14 20:35] LABS: METHADONE URINE NEGATIVE (NEGATIVE)
[2017-10-14] MEDS ORDERED: MOM 30ML SUSPENSION UDC PO PRN (21:15)
[2017-10-14] MEDS ORDERED: ACETAMINOPHEN TAB 650MG DOSE (2X325MG) PO PRN (21:15)
[2017-10-14] MEDS ORDERED: traZODone 50 MG TAB PO PRN (21:15)
[2017-10-14] MEDS ORDERED: MAALOX 30 ML SUSP *UDC PO PRN (21:15)
[2017-10-14] MEDS ORDERED: hydrOXYzine 50 MG TAB PO PRN (21:15)
[2017-10-14] MEDS ORDERED: CYCLOBENZAPRINE 10 MG TAB PO PRN (21:30)
[2017-10-14 22:27] VITALS: BP 127/82
[2017-10-15 06:47] VITALS: BP 140/65
[2017-10-15] MEDS: NICOTINE 21MG/24HR 1 EA TRANSDERMAL TD SCH (09:00)
--- NOTE | 2017-10-15 10:57 | HPEPDOC ---
[facility] Medical History & Physical Date of Admission Oct 14, 2017 History and Physical PCP: [facility] ATTENDING: Dr. Greg Mace HPI: 27yoM admitted to [facility] for unspecified depressive disorder, being medically examined today. No acute medical complaints today. Denies any fevers, chills, weakness, fatigue, GAY, CP, SOB, cough, palpitations, abdominal pain, N/V /D or changes in bowel or bladder habits. PMHx: Anxiety Depression Insomnia Chronic low back pain Erectile dysfunction PSHX: Tonsillectomy Benign Cyst removed from head and shoulder SOCHX: Resides in: [facility] Marital Status: Single Kids: 1 Employment: Served 7 years and 9 months in the [employer], discharged 04/06/16. He to [facility] 1. Currently employed at the [employer] in [place]. Tobacco use: 1-2 per week. ETOH: states drank heavily after deployment however currently one drink every 2 months. Illicit Drugs: Used Percocet in the past. IV Drug Use: Denies Tattoos done unprofessionally: Denies FAMHX: Mother: Alive, DM. Father: Unknown Siblings: Unknown Children: Alive, well Unexpected deaths due to medical reasons: None. ROS: As noted in HPI, otherwise 11pt ROS of systems reviewed and unremarkable. PE: GEN: 27yoM, appears stated age. Well-nourished, well developed. No acute distress. Alert and oriented x 3. Pleasant, interactive. HEENT: Normocephalic, atraumatic. Pupils are equal, round, and reactive to light. Extraocular movements are intact. No nystagmus appreciated. Sclera are nonicteric. Conjunctiva without injection. Nose midline. Nasal turbinates without bogginess. EACs both patent BL. TMs both visualized and mckeon with good cone of light, no bulging or erythema. No facial asymmetry. Moist mucous membranes. Dentition fair. Pharynx pink and moist, no cobblestoning. Neck supple , trachea midline. No lymphadenopathy or thyromegaly appreciated. CHEST: Regular rate and rhythm, +S1, +S2 LUNGS: Clear to auscultation bilaterally. No wheezes, rales, or rhonchi. Breathing appears symmetric and easy. Patient is speaking in full sentences. No accessory muscle use. ABD: Round, soft, non-tender, non-distended. +Bowel sounds throughout. No rebound or guarding. No costovertebral angle tenderness. EXT: Pulses 2+ bilaterally dorsalis pedis and radial. No lower extremity edema appreciated. SKIN: [employer], dry, warm. Capillary refill <2sec. No rashes. NEURO: Alert and oriented x 3. Cranial nerves III-XII are intact. No focal deficits appreciated. EKG: pending. A&P: 27yoM admitted to [facility] for unspecified depressive disorder 1. Psych. Plan per Psychiatry.Obtain baseline EKG to assure the safety of psychiatric medications as they can prolong the QT interval. 2. Nicotine dependence. Patch available. 3. Chronic low back pain. Continue Flexeril 10 mg daily as needed. Continue Tylenol 650 mg by mouth every 6 hours as needed. 4. Follow up with PCP on discharge. 5. H/O Substance use. Per psychiatry. 6. Leukocytosis. Patient is afebrile. Asymptomatic. Recheck CBC in a.m. 7. Staff member Anthony present throughout exam. Vital Signs Vital Signs Date Time Temp Pulse Resp B/P (MAP) Pulse Ox O2 Delivery O2 Flow Rate FiO2 10/15/17 06:47 97.7 88 14 140/65 (90) Room Air 10/14/17 21:58 96 Laboratory Data Labs 24H Laboratory Tests 2 10/14/17 17:56: Nucleated Red Blood Cells % (auto) 0.0, Anion Gap 7L, Glomerular Filtration Rate > 60.0, Calcium Level 9.0, Aspartate Amino Transf (AST/SGOT) 11, Alanine Aminotransferase (ALT/SGPT) 20, Alkaline Phosphatase 84, Total Bilirubin 0.8, Direct Bilirubin 0.2, Total Protein 6.8, Albumin 3.9, Albumin/Globulin Ratio 1.34, Thyroid Stimulating Hormone (TSH) 0.611, Salicylates Level < 1.7L, Acetaminophen Level < 2.0L, Ethyl Alcohol Level < 0.003 10/14/17 20:00: Urine Amphetamines Screen NEGATIVE, Urine Benzodiazepines Screen NEGATIVE, Urine Opiates Screen NEGATIVE, Urine Methadone Screen NEGATIVE, Urine Barbiturates Screen NEGATIVE, Urine Phencyclidine Screen NEGATIVE, Urine Cocaine Metabolite Screen NEGATIVE, Urine Cannabinoids Screen NEGATIVE CBC/BMP Laboratory Tests 10/14/17 17:56 Red Blood Count 5.28, Mean Corpuscular Volume 85.4, Mean Corpuscular Hemoglobin 28.4, Mean Corpuscular Hemoglobin Concent 33.3, Red Cell Distribution Width 12.9 Home Medications Scheduled PRN Cyclobenzaprine HCl (Cyclobenzaprine HCl) 10 Mg Tab, 10 MG PO for MUSCLE SPASMS Sildenafil Citrate (Viagra) 100 Mg Tab, 100 MG PO for ERECTILE DYSFUNCTION Allergies Coded Allergies: Hydrocodone (Verified Allergy, Severe, THROAT SWELLS, 10/06/17) Penicillins (Verified Allergy, Mild, HIVES, 10/06/17) Erika Velásquez Oct 15, 2017 10:57
[2017-10-15] MEDS: PARoxetine 12.5 MG **CR** TAB PO SCH (15:18)
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
[2017-10-15 18:19] VITALS: BP 122/72
[2017-10-16 06:27] VITALS: BP 98/53
[2017-10-16 07:36] LABS: MEAN CORPUSCULAR HEMOGLOBIN 28.3 pg (27.0-33.0); MEAN CORPUSCULAR HGB CONC 32.6 g/dl (32.0-36.5); MEAN CORPUSCULAR VOLUME 86.8 fl (80.0-96.0); PLATELET COUNT, AUTOMATED 314 10^3/uL (150-450); RED CELL DISTRIBUTION WIDTH 12.9 % (11.5-14.5); WHITE BLOOD COUNT 9.2 10^3/uL (4.0-10.0)
[2017-10-16] MEDS: NICOTINE 21MG/24HR 1 EA TRANSDERMAL TD SCH (09:00)
[2017-10-16] MEDS: PARoxetine 12.5 MG **CR** TAB PO SCH (09:22)
[2017-10-16] MEDS ORDERED: hydrOXYzine 50 MG TAB PO PRN (11:15)
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
[2017-10-16] MEDS ORDERED: TRAZO50TA PO ×2 (12:46→13:00)
[2017-10-16] MEDS ORDERED: NICO21PAT TD (12:46)
[2017-10-16] MEDS ORDERED: ABIL10TA9 PO ×2 (12:48→13:00)
[2017-10-16] MEDS ORDERED: HYDR-3363 PO ×3 (12:51→14:46)
[2017-10-16] MEDS ORDERED: PARO20TA3 PO ×2 (12:52→13:00)
--- NOTE | 2017-10-17 00:46 | ECGEPIP ---
Stationary ECG Study [facility] Test Date: 2017-10-15 Pat Name: KAVITHA REECE Department: Room: [place] [address] Gender: M Gis Mapping Technician: : 1990 Requested By: Erika Velásquez Order Number: [id number] Reading MD: Gareth Calderon Measurements Intervals [place] Rate: 65 P: 14 VA: 167 QRS: 6 QRSD: 110 T: 30 QT: 394 QTc: 410 Interpretive Statements SINUS RHYTHM No prior tracing in the system Electronically Signed On 10-17-2017 0:46:41 EST by Gareth Calderon
[2017-10-17] MEDS ORDERED: PARoxetine 10MG TABLET PO SCH (09:00)
== END 2017-10-16 14:50 | disposition home or self-care (01) | DRG 753 ==
LOC: M ED 16:54 → M ED INP 21:09 → M PSY 22:05
PROVIDERS: ADMIT Psychiatry & Neurology Psychiatry; ATTEND Psychiatry & Neurology Psychiatry
DX: F31.9 Bipolar disorder, unspecified (principal); F41.8 Other specified anxiety disorders; F60.3 Borderline personality disorder; F60.7 Dependent personality disorder; M54.9 Dorsalgia, unspecified; F43.10 Post-traumatic stress disorder, unspecified; F17.200 Nicotine dependence, unspecified, uncomplicated; Z79.899 Other long term (current) drug therapy

== ENCOUNTER → 2017-11-01 | Outpatient (CLI) | payer OTHER ==
[~2017-11-01] MED LIST changes: +ABIL10TA9 PO; +HYDR-3363 PO; +NICO21PAT TD; +PARO20TA3 PO; +TRAZO50TA PO
--- NOTE | 2017-11-01 15:56 | REP ---
RIGHT HAND, FOUR VIEW: HISTORY: Contusion. There is no acute fracture or dislocation. The joint spaces are normal in appearance. IMPRESSION: There is no acute fracture or dislocation. Signed by Ariel Alejandro MD 11/01/2017 04:00 P
== END ==
LOC: M WUC 15:30
PROVIDERS: ATTEND Physician Assistant
DX: S60.221A Contusion of right hand, initial encounter (principal); X58.XXXA Exposure to other specified factors, initial encounter; Y92.89 Other specified places as the place of occurrence of the external cause; Y93.89 Activity, other specified; Y99.8 Other external cause status

== ENCOUNTER 2018-02-06 22:41 | Emergency (ER) | payer OTHER, MEDICAID | END 2018-02-07 00:48 | disposition home or self-care (01) | LOC: M ED 22:41 | DX: L72.11 Pilar cyst (principal); L03.211 Cellulitis of face; J45.909 Unspecified asthma, uncomplicated; F43.10 Post-traumatic stress disorder, unspecified; Z87.820 Personal history of traumatic brain injury; Z79.899 Other long term (current) drug therapy; Z88.5 Allergy status to narcotic agent; Z88.0 Allergy status to penicillin | CPT/HCPCS: 99282 ==

== ENCOUNTER 2018-08-26 12:02 | Emergency (ER) | payer OTHER, MEDICAID ==
[2018-08-26 12:22] LABS: BASO % 0.3 % (0.0-1.0); EOS # 0.1 10^3/uL (0.0-0.50); EOS % 0.6 % (0.0-3.0); HEMATOCRIT 47.5 % (42.0-52.0); HEMOGLOBIN 16.3 g/dl (13.5-17.5); IMMATURE GRANULOCYTE % 0.2 % (0-3.0); LYMPH # 1.3 10^3/uL (1.5-6.5); LYMPH % 14.8 % (24.0-44.0); MEAN CORPUSCULAR HEMOGLOBIN 29.3 pg (27.0-33.0); MEAN CORPUSCULAR HGB CONC 34.3 g/dl (32.0-36.5); MEAN CORPUSCULAR VOLUME 85.3 fl (80.0-96.0); MONO # 0.5 10^3/uL (0.0-0.8); MONO % 5.6 % (0.0-5.0); NEUTROPHILS % 78.5 % (36.0-66.0); PLATELET COUNT, AUTOMATED 262 10^3/uL (150-450); RED BLOOD COUNT 5.57 10^6/uL (4.30-6.10); RED CELL DISTRIBUTION WIDTH 13.3 % (11.5-14.5); WHITE BLOOD COUNT 8.9 10^3/uL (4.0-10.0)
[2018-08-26 13:13] LABS: ALBUMIN 4.3 GM/DL (3.2-5.2); ALBUMIN/GLOBULIN RATIO 1.34 (1.00-1.93); ALKALINE PHOSPHATASE 87 U/L (45-117); ALT/SGPT 20 U/L (12-78); ANION GAP 11 MEQ/L (8-16); AST/SGOT 11 U/L (7-37); BILIRUBIN,TOTAL 1.2 MG/DL (0.2-1.0); BLOOD UREA NITROGEN 13 MG/DL (7-18); CALCIUM LEVEL 9.6 MG/DL (8.5-10.1); CARBON DIOXIDE LEVEL 25 MEQ/L (21-32); CHLORIDE LEVEL 106 MEQ/L (98-107); CREATININE FOR GFR 0.91 MG/DL (0.70-1.30); ETHYL ALCOHOL (ETHANOL) < 0.003 % (0.000-0.010); GLOMERULAR FILTRATION RATE > 60.0 (>60); GLUCOSE, FASTING 94 MG/DL (70-100); POTASSIUM SERUM 3.6 MEQ/L (3.5-5.1); SODIUM LEVEL 142 MEQ/L (136-145); TOTAL PROTEIN 7.5 GM/DL (6.4-8.2)
[2018-08-26 15:17] LABS: AMPHETAMINES LEVEL URINE NEGATIVE (NEGATIVE); BARBITURATES URINE NEGATIVE (NEGATIVE); BENZODIAZEPINES URINE NEGATIVE (NEGATIVE); CANNABINOIDS URINE POSITIVE (NEGATIVE); COCAINE METABOLITE URINE NEGATIVE (NEGATIVE); METHADONE URINE NEGATIVE (NEGATIVE); OPIATES URINE NEGATIVE (NEGATIVE); PHENCYCLIDINE URINE NEGATIVE (NEGATIVE)
== END 2018-08-26 15:11 | disposition home or self-care (01) ==
LOC: M ED 12:02
DX: R55 Syncope and collapse (principal); S30.0XXA Contusion of lower back and pelvis, initial encounter; W19.XXXA Unspecified fall, initial encounter; Y92.9 Unspecified place or not applicable; Y93.9 Activity, unspecified; Y99.9 Unspecified external cause status; J45.909 Unspecified asthma, uncomplicated; G89.29 Other chronic pain; M54.5 Low back pain; F32.9 Major depressive disorder, single episode, unspecified; F41.9 Anxiety disorder, unspecified; M51.86 Other intervertebral disc disorders, lumbar region; Z79.899 Other long term (current) drug therapy; Z88.5 Allergy status to narcotic agent; Z88.0 Allergy status to penicillin
CPT/HCPCS: 70450

== ENCOUNTER → 2018-11-04 | Outpatient (CLI) | payer OTHER | LOC: M RAD 09:24 | DX: I86.1 Scrotal varices (principal); N43.2 Other hydrocele; N45.1 Epididymitis | CPT/HCPCS: 76870 ==

== ENCOUNTER → 2019-01-27 | Outpatient (REF) | payer OTHER ==
[~2019-01-27] MED LIST changes: +ACET-683 PO; +BACT800T5 PO; +PRED20TA PO; +VENTAER INH
== END ==
LOC: M LAB REF 19:25
PROVIDERS: ATTEND Physician Assistant
DX: J06.9 Acute upper respiratory infection, unspecified (principal)

== ENCOUNTER 2019-01-29 19:16 | Emergency (ER) | payer OTHER ==
[~2019-01-29] VITALS: Ht 182.9 cm; Wt 84.1 kg
[~2019-01-29 19:16] MED LIST changes: -ACET-683 PO; -PRED20TA PO; -VENTAER INH
[2019-01-29] MEDS ORDERED: ACET-683 PO ×2 (19:31)
[2019-01-29] MEDS ORDERED: VENTAER INH (19:31)
--- NOTE | 2019-01-29 20:02 | REP ---
Clinical: Shortness of breath . Comparison: None . Technique: PA and lateral. Findings: The mediastinum and cardiac silhouette are normal. The lung ward are clear and without acute consolidation, effusion, or pneumothorax. The skeletal structures are intact and normal. Impression: 1. No acute cardiopulmonary process. Electronically Signed by Gunner Alberto MD 01/29/2019 07:54 P
[2019-01-29] MEDS ORDERED: ALBUTEROL SULFATE 2.5 MG/0.5 ML INH NEB SOLN NEB ONE (22:00)
[2019-01-29] MEDS ORDERED: PRED20TA PO ×2 (22:35→22:49)
[2019-01-29 22:42] VITALS: BP 125/66
== END 2019-01-29 22:54 | disposition home or self-care (01) ==
LOC: M ED 19:16
DX: J11.1 Influenza due to unidentified influenza virus with other respiratory manifestations (principal); R06.02 Shortness of breath; I10 Essential (primary) hypertension; J45.909 Unspecified asthma, uncomplicated; Z79.899 Other long term (current) drug therapy; Z88.5 Allergy status to narcotic agent; Z88.0 Allergy status to penicillin

== ENCOUNTER → 2019-10-20 | Outpatient (REF) | payer OTHER ==
[~2019-10-20] MED LIST changes: +ACET-683 PO; +PRED20TA PO; +TRAZ1TAB10 PO; -TRAZO50TA PO; +VENTAER INH
[2019-10-20 18:42] LABS: BASO # 0.1 10^3/uL (0.0-0.2); BASO % 0.6 % (0.0-1.0); EOS # 0.1 10^3/uL (0.0-0.5); EOS % 0.8 % (0.0-3.0); HEMATOCRIT 49.9 % (42.0-52.0); HEMOGLOBIN 16.2 g/dl (13.5-17.5); LYMPH % 22.6 % (24.0-44.0); MEAN CORPUSCULAR HEMOGLOBIN 28.4 pg (27.0-33.0); MEAN CORPUSCULAR HGB CONC 32.5 g/dl (32.0-36.5); MEAN CORPUSCULAR VOLUME 87.4 fl (80.0-96.0); MONO # 0.7 10^3/uL (0.0-0.8); MONO % 8.1 % (0.0-5.0); NEUTROPHILS # 5.8 10^3/uL (1.5-8.5); NEUTROPHILS % 67.6 % (36.0-66.0); PLATELET COUNT, AUTOMATED 289 10^3/uL (150-450); RED BLOOD COUNT 5.71 10^6/uL (4.30-6.10); WHITE BLOOD COUNT 8.6 10^3/uL (4.0-10.0)
[2019-10-20 18:53] LABS: ALBUMIN 4.2 GM/DL (3.2-5.2); ALT/SGPT 22 U/L (12-78); BILIRUBIN,TOTAL 0.5 MG/DL (0.2-1.0); BLOOD UREA NITROGEN 13 MG/DL (7-18); CALCIUM LEVEL 9.2 MG/DL (8.5-10.1); CARBON DIOXIDE LEVEL 27 MEQ/L (21-32); CHLORIDE LEVEL 108 MEQ/L (98-107); CHOLESTEROL LEVEL 217 MG/DL (<200); CHOLESTEROL RISK RATIO 5.425 (<5); CREATININE FOR GFR 0.98 MG/DL (0.70-1.30); FREE T4 1.13 NG/DL (0.76-1.46); GLOMERULAR FILTRATION RATE > 60.0 (>60); GLUCOSE, FASTING 86 MG/DL (70-100); HDL CHOLESTEROL 40 MG/DL (>40); LDL CHOLESTEROL 161 MG/DL (<100); NON-HDL-C 177 MG/DL; POTASSIUM SERUM 4.2 MEQ/L (3.5-5.1); SODIUM LEVEL 142 MEQ/L (136-145); TOTAL 25(OH) VITAMIN D 32.3 NG/ML (30.0-100.0); TOTAL PROTEIN 7.4 GM/DL (6.4-8.2); TRIGLYCERIDES LEVEL 81 MG/DL (<150)
[2019-10-20 19:43] LABS: HEMOGLOBIN A1c 5.6 %
== END ==
LOC: M LAB REF 16:44
PROVIDERS: ATTEND Nurse Practitioner Family
DX: Z13.9 Encounter for screening, unspecified (principal)

== ENCOUNTER 2019-10-21 15:52 | Emergency (ER) | payer OTHER ==
[~2019-10-21] VITALS: Ht 182.9 cm; Wt 97.7 kg
--- NOTE | 2019-10-21 16:28 | REP ---
CT brain: 10/21/2019. Indication: Stroke. Comparison: 08/26/2018. Technique: Unenhanced axial CT images of the brain were obtained from skull base to vertex. Findings: There is no acute intracranial hemorrhage, acute cortical infarction, mass effect or hydrocephalous. A few small scalp sebaceous cysts are noted particularly anteriorly. The paranasal sinuses and mastoid air cells are clear. Impression: No acute intracranial process. Electronically Signed by Balaji Santana DO 10/21/2019 04:20 P
[2019-10-21 17:24] LABS: BASO % 0.6 % (0.0-1.0); EOS # 0.2 10^3/uL (0.0-0.5); EOS % 2.5 % (0.0-3.0); HEMATOCRIT 49.5 % (42.0-52.0); LYMPH # 2.2 10^3/uL (1.5-5.0); LYMPH % 29.7 % (24.0-44.0); MEAN CORPUSCULAR HEMOGLOBIN 28.1 pg (27.0-33.0); MEAN CORPUSCULAR HGB CONC 32.3 g/dl (32.0-36.5); MONO # 0.6 10^3/uL (0.0-0.8); MONO % 8.3 % (0.0-5.0); NEUTROPHILS # 4.3 10^3/uL (1.5-8.5); NEUTROPHILS % 58.6 % (36.0-66.0); PLATELET COUNT, AUTOMATED 277 10^3/uL (150-450); RED BLOOD COUNT 5.69 10^6/uL (4.30-6.10); WHITE BLOOD COUNT 7.2 10^3/uL (4.0-10.0)
[2019-10-21 18:44] LABS: BLOOD UREA NITROGEN 14 MG/DL (7-18); CALCIUM LEVEL 9.3 MG/DL (8.5-10.1); CARBON DIOXIDE LEVEL 28 MEQ/L (21-32); CHLORIDE LEVEL 107 MEQ/L (98-107); CREATININE FOR GFR 1.17 MG/DL (0.70-1.30); FOLATE 14.6 NG/ML (>5.4); GLOMERULAR FILTRATION RATE > 60.0 (>60); GLUCOSE, FASTING 79 MG/DL (70-100); MAGNESIUM LEVEL 2.1 MG/DL (1.8-2.4); POTASSIUM SERUM 4.1 MEQ/L (3.5-5.1); SODIUM LEVEL 142 MEQ/L (136-145); TOTAL 25(OH) VITAMIN D 27.6 NG/ML (30.0-100.0); VITAMIN B12 LEVEL 382 PG/ML (247-911)
--- NOTE | 2019-10-21 19:58 | REPVR ---
PROCEDURE INFORMATION: Exam: MR Angiogram Head Without Contrast, Arteries Exam date and time: 10/21/2019 7:28 PM Age: 29 years old Clinical history: Numbness; Additional info: Right facial numbness TECHNIQUE: Imaging protocol: MR angiogram head without contrast. Exam focused on the arteries. 3D rendering: MIP reconstructed images were created and reviewed. COMPARISON: CT Head without contrast 10/21/2019 4:09 PM FINDINGS: Right internal carotid artery: Unremarkable. Intracranial segment is patent with no significant stenosis. No aneurysm. Right anterior cerebral artery: Unremarkable. No occlusion or significant stenosis. No aneurysm. Right middle cerebral artery: Unremarkable. No occlusion or significant stenosis. No aneurysm. Right posterior cerebral artery: Unremarkable. No occlusion or significant stenosis. No aneurysm. Right vertebral artery: Unremarkable. No occlusion or significant stenosis. No aneurysm. Left internal carotid artery: Unremarkable. Intracranial segment is patent with no significant stenosis. No aneurysm. Left anterior cerebral artery: Unremarkable. No occlusion or significant stenosis. No aneurysm. Left middle cerebral artery: Unremarkable. No occlusion or significant stenosis. No aneurysm. Left posterior cerebral artery: Unremarkable. No occlusion or significant stenosis. No aneurysm. Left vertebral artery: Unremarkable. No occlusion or significant stenosis. No aneurysm. Basilar artery: Unremarkable. No occlusion or significant stenosis. No aneurysm. Other vasculature: The anterior communicating artery is fenestrated. IMPRESSION: No major proximal vessel branch occlusion seen. Electronically signed by: Danielle Gentile On 10/21/2019 19:57:32 PM
--- NOTE | 2019-10-21 20:02 | REPVR ---
PROCEDURE INFORMATION: Exam: MR Head Without Contrast Exam date and time: 10/21/2019 7:28 PM Age: 29 years old Clinical history: Numbness / parasthesia; Additional info: Right facial numbness TECHNIQUE: Imaging protocol: MR of the head without contrast. COMPARISON: CT Head without contrast 10/21/2019 4:09 PM FINDINGS: Brain: No acute infarct identified on the diffusion weighted imaging. No parenchymal hemorrhage. No evidence of brain parenchymal edema or intracranial mass effect. No significant white matter disease. Punctate focus of increased signal intensity in the left frontal lobe subcortical white matter on the T2-weighted imaging of doubtful clinical consequence/relevance. Ventricles: Normal. No ventriculomegaly. Bones/joints: Unremarkable. Soft tissues: Multiple scalp sebaceous cyst. Sinuses: Trace ethmoid mucosal thickening. Mastoid air cells: Normal as visualized. No mastoid effusion. Orbits: Unremarkable. IMPRESSION: No evidence of acute infarct. Electronically signed by: Danielle Gentile On 10/21/2019 20:01:52 PM
[2019-10-21 20:30] VITALS: BP 112/64
== END 2019-10-21 20:44 | disposition home or self-care (01) ==
LOC: M ED 15:52
DX: R20.2 Paresthesia of skin (principal); R29.701 NIHSS score 1; I10 Essential (primary) hypertension; M51.9 Unspecified thoracic, thoracolumbar and lumbosacral intervertebral disc disorder; M41.9 Scoliosis, unspecified; Z88.0 Allergy status to penicillin; Z88.5 Allergy status to narcotic agent; Z79.899 Other long term (current) drug therapy

== ENCOUNTER → 2019-10-24 | Outpatient (CLI) | payer OTHER | LOC: M SLEEP 20:00 | PROVIDERS: ATTEND Physician Assistant | DX: R06.83 Snoring (principal) ==

== ENCOUNTER → 2019-12-25 | Outpatient (CLI) | payer OTHER ==
--- NOTE | 2019-12-25 18:36 | REP ---
Chest x-ray: Two views. History: Dyspnea. Comparison chest x-ray: January 29, 2019. Findings: The lungs are symmetrically aerated and clear. The pleural angles are sharp. Heart size is normal. Pulmonary vasculature is not increased. No bony abnormalities seen. Impression: Negative chest x-ray. Electronically Signed by Kev Hazel MD 12/25/2019 06:27 P
== END ==
LOC: M RAD 15:42
PROVIDERS: ATTEND Physician Assistant
DX: R06.00 Dyspnea, unspecified (principal)

== ENCOUNTER → 2020-01-13 | Outpatient (CLI) | payer OTHER ==
[2020-01-15 00:07] LABS: TESTOSTERONE FREE (DIRECT) 20.9 pg/mL (9.3-26.5)
== END ==
LOC: M PLALAB 08:50
PROVIDERS: ATTEND Nurse Practitioner Women's Health
DX: N52.9 Male erectile dysfunction, unspecified (principal)

== ENCOUNTER → 2020-01-24 | Outpatient (REF) | payer OTHER ==
[2020-01-22 21:48] LABS: CHLAMYDIA DNA AMPLIFICATION NEGATIVE (NEGATIVE); GC DNA AMPLIFICATION NEGATIVE (NEGATIVE)
== END ==
LOC: M LAB REF 11:57
PROVIDERS: ATTEND Physician Assistant
DX: Z20.2 Contact with and (suspected) exposure to infections with a predominantly sexual mode of transmission (principal)

== ENCOUNTER → 2020-02-10 | Outpatient (REF) | payer OTHER | LOC: M LAB REF 12:55 | PROVIDERS: ATTEND Physician Assistant | DX: E78.5 Hyperlipidemia, unspecified (principal) ==

== ENCOUNTER → 2020-02-16 | Outpatient (CLI) | payer OTHER ==
[~2020-02-16] MED LIST changes: +METHACHOLINE KIT (J7674) INH ONE
--- NOTE | 2020-02-16 14:23 | PFTRPT ---
Height: 72.00 Inches Weight: 230.00 Lbs BSA: 2.26 Diagnosis: R06.00 DATE OF PROCEDURE: 02/16/2020 ORDERED BY: STEPHANY Kim INTERPRETATION: Study of excellent technical quality. Under protocol, methacholine was administered. At a dose of 10 mg or 63.875 CDUs a 28% decline in the FEV1 was noted. PC of 5.16 is significant. Flow rates did return to baseline post bronchodilator administration. IMPRESSION: Positive methacholine challenge study. MTDD
== END ==
LOC: M CARPUL 13:27
PROVIDERS: ATTEND Physician Assistant
DX: R06.00 Dyspnea, unspecified (principal)
CPT/HCPCS: 94070; 95070; J7674

== ENCOUNTER → 2020-05-02 | Outpatient (CLI) | payer OTHER ==
[~2020-05-02] MED LIST changes: +CYCL-707 PO; -CYCL10TA PO; -METHACHOLINE KIT (J7674) INH ONE
[2020-05-02 11:20] LABS: BASO % 0.5 % (0.0-1.0); EOS # 0.1 10^3/uL (0.0-0.5); EOS % 1.6 % (0.0-3.0); HEMATOCRIT 51.1 % (42.0-52.0); HEMOGLOBIN 16.6 g/dl (13.5-17.5); LYMPH # 1.8 10^3/uL (1.5-5.0); LYMPH % 22.1 % (24.0-44.0); MEAN CORPUSCULAR HEMOGLOBIN 28.6 pg (27.0-33.0); MEAN CORPUSCULAR HGB CONC 32.5 g/dl (32.0-36.5); MEAN CORPUSCULAR VOLUME 88.1 fl (80.0-96.0); MONO # 0.6 10^3/uL (0.0-0.8); MONO % 7.5 % (0.0-5.0); NEUTROPHILS # 5.6 10^3/uL (1.5-8.5); NEUTROPHILS % 67.9 % (36.0-66.0); PLATELET COUNT, AUTOMATED 281 10^3/uL (150-450); WHITE BLOOD COUNT 8.2 10^3/uL (4.0-10.0)
[2020-05-02 12:52] LABS: ALBUMIN 4.3 GM/DL (3.2-5.2); ALT/SGPT 23 U/L (12-78); BILIRUBIN,TOTAL 0.3 MG/DL (0.2-1.0); BLOOD UREA NITROGEN 12 MG/DL (7-18); CALCIUM LEVEL 9.5 MG/DL (8.5-10.1); CARBON DIOXIDE LEVEL 27 MEQ/L (21-32); CHLORIDE LEVEL 111 MEQ/L (98-107); CHOLESTEROL LEVEL 169 MG/DL (<200); CHOLESTEROL RISK RATIO 5.121 (<5); CREATININE FOR GFR 0.91 MG/DL (0.70-1.30); GLOMERULAR FILTRATION RATE > 60.0 (>60); GLUCOSE, FASTING 86 MG/DL (70-100); HDL CHOLESTEROL 33 MG/DL (>40); LDL CHOLESTEROL 119 MG/DL (<100); NON-HDL-C 136 MG/DL; POTASSIUM SERUM 4.9 MEQ/L (3.5-5.1); SODIUM LEVEL 145 MEQ/L (136-145); TOTAL PROTEIN 7.2 GM/DL (6.4-8.2); TRIGLYCERIDES LEVEL 83 MG/DL (<150)
== END ==
LOC: M LAB 09:54
PROVIDERS: ATTEND Nurse Practitioner Family
DX: L72.11 Pilar cyst (principal); K21.9 Gastro-esophageal reflux disease without esophagitis; E78.5 Hyperlipidemia, unspecified; J45.909 Unspecified asthma, uncomplicated; G47.00 Insomnia, unspecified; Z13.9 Encounter for screening, unspecified

== ENCOUNTER → 2020-05-10 | Outpatient (REF) | payer OTHER | LOC: M LAB REF 14:37 | PROVIDERS: ATTEND Physician Assistant Medical | DX: R19.4 Change in bowel habit (principal) ==

== ENCOUNTER → 2020-06-05 | Outpatient (CLI) | payer OTHER ==
[~2020-06-05] MED LIST changes: +ARIP1TAB4 PO; +FLUT11IN INH; +OMEP-218 PO; +ROSU40TA4 PO; +VITAD1000T PO
== END ==
LOC: M LABSMTC 10:52
PROVIDERS: ATTEND Anesthesiology
DX: Z03.818 Encounter for observation for suspected exposure to other biological agents ruled out (principal)
CPT/HCPCS: C9803; U0003

== ENCOUNTER 2020-06-08 14:06 | Day surgery (SDC) | payer OTHER ==
[~2020-06-08] VITALS: Ht 182.9 cm; Wt 95.3 kg
[~2020-06-08 14:06] MED LIST changes: +D31000TA2 PO; +LIDOCAINE 2% 100MG/5ML SDV (FOR ANES.) As Ordered ONE; +NS 1,000 ML IV ONE; -VITAD1000T PO; +propofoL 200 MG/20 ML VIAL As Ordered ONE
[2020-06-08] MEDS ORDERED: fentaNYL 100 MCG/2 ML INJECTION (J3010) As Ordered ONE (15:57)
--- NOTE | 2020-06-08 16:34 | ROOR ---
Patient Name: Otoniel Alvarez Procedure Date: 06/08/2020 3:59 PM Date of : 1990 Age: 30 Room: [facility] Gender: Male Note Status: Finalized Procedure: Upper GI endoscopy Indications: Dyspepsia, Heartburn Providers: Delano Gonzalez MD Referring MD: Hui JENKINS NP Requesting Provider: Medicines: Monitored Anesthesia Care Complications: No immediate complications. Procedure: Pre-Anesthesia Assessment: - Prior to the procedure, a History and Physical was performed, and patient medications and allergies were reviewed. The patient is competent. The risks and benefits of the procedure and the sedation options and risks were discussed with the patient. All questions were answered and informed consent was obtained. Patient identification and proposed procedure were verified by the physician, the nurse and the anesthesiologist in the procedure room. Mental Status Examination: alert and oriented. Airway Examination: normal oropharyngeal airway and neck mobility. Respiratory Examination: clear to auscultation. CV Examination: normal. Prophylactic Antibiotics: The patient does not require prophylactic antibiotics. Prior Anticoagulants: The patient has taken no previous anticoagulant or antiplatelet agents. ASA Grade Assessment: II - A patient with mild systemic disease. After reviewing the risks and benefits, the patient was deemed in satisfactory condition to undergo the procedure. The anesthesia plan was to use monitored anesthesia care (MAC). Immediately prior to administration of medications, the patient was re-assessed for adequacy to receive sedatives. The heart rate, respiratory rate, oxygen saturations, blood pressure, adequacy of pulmonary ventilation, and response to care were monitored throughout the procedure. The physical status of the patient was re-assessed after the procedure. The Endoscope was introduced through the mouth, and advanced to the second part of duodenum. The upper GI endoscopy was accomplished without difficulty. The patient tolerated the procedure well. Findings: The examined esophagus was normal. Patchy moderate inflammation characterized by congestion (edema), erythema and granularity was found in the gastric fundus, in the gastric body and in the gastric antrum. Biopsies were taken with a cold forceps for Helicobacter pylori testing. Verification of patient identification for the specimen was done by the physician and nurse using the patient's name, date and medical record number. Estimated blood loss was minimal. The duodenal bulb and second portion of the duodenum were normal. Biopsies for histology were taken with a cold forceps for evaluation of celiac disease. Impression: - Normal esophagus. - Gastritis. Biopsied. - Normal duodenal bulb and second portion of the duodenum. Biopsied. Recommendation: - Patient has a contact number available for emergencies. The signs and symptoms of potential delayed complications were discussed with the patient. Return to normal activities tomorrow. Written discharge instructions were provided to the patient. - High fiber diet. - Continue present medications. - Follow an antireflux regimen. - Await pathology results. - Telephone GI clinic for pathology results in 2 weeks. - Return to primary care physician. Delano Gonzalez MD Delano Gonzalez MD 06/08/2020 4:33:46 PM Electronically signed by Delano Gonzalez MD Number of Addenda: 0 Note Initiated On: 06/08/2020 3:59 PM Estimated Blood Loss: Estimated blood loss was minimal.
[2020-06-08 16:40] VITALS: BP 135/65
== END 2020-06-08 17:02 | disposition home or self-care (01) ==
LOC: M OPP 14:06
PROVIDERS: ATTEND Internal Medicine Gastroenterology
DX: K29.70 Gastritis, unspecified, without bleeding (principal); R12 Heartburn; F17.210 Nicotine dependence, cigarettes, uncomplicated; Z79.899 Other long term (current) drug therapy; Z88.0 Allergy status to penicillin; Z88.5 Allergy status to narcotic agent
CPT/HCPCS: 43239; 88305; J3010

== ENCOUNTER → 2020-08-18 | Outpatient (REF) | payer OTHER ==
[~2020-08-18] MED LIST changes: -LIDOCAINE 2% 100MG/5ML SDV (FOR ANES.) As Ordered ONE; -NS 1,000 ML IV ONE; -propofoL 200 MG/20 ML VIAL As Ordered ONE
[2020-08-18 18:38] LABS: BASO % 0.4 % (0.0-1.0); EOS # 0.2 10^3/uL (0.0-0.5); HEMATOCRIT 46.9 % (42.0-52.0); HEMOGLOBIN 15.2 g/dl (13.5-17.5); LYMPH # 1.1 10^3/uL (1.5-5.0); LYMPH % 11.3 % (24.0-44.0); MEAN CORPUSCULAR HEMOGLOBIN 29.5 pg (27.0-33.0); MEAN CORPUSCULAR HGB CONC 32.4 g/dl (32.0-36.5); MEAN CORPUSCULAR VOLUME 90.9 fl (80.0-96.0); MONO # 0.6 10^3/uL (0.0-0.8); NEUTROPHILS # 7.5 10^3/uL (1.5-8.5); PLATELET COUNT, AUTOMATED 287 10^3/uL (150-450); RED BLOOD COUNT 5.16 10^6/uL (4.30-6.10); WHITE BLOOD COUNT 9.3 10^3/uL (4.0-10.0)
[2020-08-18 19:00] LABS: ALBUMIN 3.9 GM/DL (3.2-5.2); ALT/SGPT 22 U/L (12-78); BILIRUBIN,TOTAL 0.4 MG/DL (0.2-1.0); BLOOD UREA NITROGEN 9 MG/DL (7-18); CALCIUM LEVEL 9.3 MG/DL (8.5-10.1); CARBON DIOXIDE LEVEL 29 MEQ/L (21-32); CHLORIDE LEVEL 107 MEQ/L (98-107); CHOLESTEROL LEVEL 164 MG/DL (<200); CHOLESTEROL RISK RATIO 4.315 (<5); CREATININE FOR GFR 1.09 MG/DL (0.70-1.30); GLOMERULAR FILTRATION RATE > 60.0 (>60); GLUCOSE, FASTING 87 MG/DL (70-100); HDL CHOLESTEROL 38 MG/DL (>40); LDL CHOLESTEROL 69 MG/DL (<100); NON-HDL-C 126 MG/DL; POTASSIUM SERUM 4.7 MEQ/L (3.5-5.1); SODIUM LEVEL 139 MEQ/L (136-145); TOTAL PROTEIN 6.9 GM/DL (6.4-8.2); TRIGLYCERIDES LEVEL 283 MG/DL (<150)
[2020-08-18 19:03] LABS: HEMOGLOBIN A1c 5.2 %
== END ==
LOC: M LAB REF 17:09
PROVIDERS: ATTEND Nurse Practitioner Family
DX: R73.03 Prediabetes (principal); K21.9 Gastro-esophageal reflux disease without esophagitis; E78.5 Hyperlipidemia, unspecified; Z13.9 Encounter for screening, unspecified